=== PATIENT | female | born 1995 | race Caucasian/White ===

== ENCOUNTER 2021-06-07 08:00 | Inpatient (IN) | payer OTHER ==
[2021-07-02] MEDS ORDERED: Lidocaine 1% (PF) 30 ML VIAL SC PRN (05:33)
[2021-07-02] MEDS ORDERED: HYDROcodone/Acetaminophen 5/325 mg Tablet PO PRN ×4 (05:33→13:15)
[2021-07-02] MEDS ORDERED: Ondansetron PF 4 MG/2 ML Vial IVP PRN (05:33)
[2021-07-02] MEDS ORDERED: Ibuprofen 800 MG TAB PO PRN (05:33)
[2021-07-02] MEDS ORDERED: Butorphanol Tartrate 1 MG/ML VIAL SLOW IVP PRN (05:33)
[2021-07-02] MEDS ORDERED: Carboprost 250 MCG/ML AMP IM PRN (05:33)
[2021-07-02] MEDS ORDERED: hydrALAZINE 20 MG/ML VIAL SLOW IVP PRN ×2 (05:33→13:15)
[2021-07-02] MEDS ORDERED: Misoprostol 200 MCG TAB PR PRN (05:33)
[2021-07-02] MEDS ORDERED: Diphenoxylate HCl/Atropine Tablet PO PRN ×2 (05:33)
[2021-07-02] MEDS ORDERED: Methylergonovine 0.2 MG/ML VIAL IM PRN ×2 (05:33→13:15)
[2021-07-02] MEDS ORDERED: Promethazine HCl 25 MG/ML VIAL IM PRN (05:33)
[2021-07-02] MEDS ORDERED: NS w/ Oxytocin 30 units 500 ML IV SCH ×3 (05:45→13:15)
[2021-07-02 06:57] VITALS: BMI 34.9
[2021-07-02] MEDS: Lactated Ringer's 1,000 ML IV SCH ×2 (07:01→08:44)
[2021-07-02 07:58] LABS: Mean Corpuscular HGB CONC 27.9 g/dL (32.0-36.0); Mean Corpuscular Hemoglobin 20.6 pg (27.0-33.0); Mean Corpuscular Volume 73.9 fl (81.6-98.3); Platelet Count 121 10x3/uL (150-450); RBC Distribution Width 27.8 % (11.5-14.5); Red Blood Cell (RBC) Count 4.37 10x6/uL (3.90-5.03); White Blood Cell (WBC) Count 8.6 10x3/uL (3.5-10.5)
[2021-07-02] MEDS ORDERED: Fentanyl 2 mcg/Bup 0.1% Cadd 100 ML ONE (08:30)
[2021-07-02 08:36] LABS: Hep B Surf Ag Non-Reactive S/CO (NonReactive)
[2021-07-02 08:37] LABS: Syphilis Antibody Nonreactive (Nonreactive); Syphilis Antibody Index 0.02 S/CO (<1.00 Non-Reactive)
[2021-07-02 08:40] LABS: HBSAg Index 0.14 S/CO (0-0.99)
[2021-07-02] MEDS ORDERED: Methylergonovine 0.2 MG/ML VIAL ONE (10:34)
[2021-07-02] MEDS ORDERED: Carboprost 250 MCG/ML AMP ONE (10:34)
[2021-07-02] MEDS ORDERED: Misoprostol 200 MCG TAB ONE (10:34)
[2021-07-02] MEDS ORDERED: Boostrix 0.5 ML (Tdap) VIAL IM ONE (13:15)
[2021-07-02] MEDS ORDERED: Lanolin Ointment 7 GM TUBE TOP PRN (13:15)
[2021-07-02] MEDS ORDERED: Milk Of Magnesia 30 ML UDCUP PO PRN (13:15)
[2021-07-02] MEDS ORDERED: Bisacodyl 10 MG SUPP PR PRN (13:15)
[2021-07-02] MEDS ORDERED: Misoprostol 200 MCG TAB VAG PRN (13:15)
[2021-07-02] MEDS ORDERED: Benzocaine-Menthol 82.5 ML CAN TOP PRN (13:15)
[2021-07-02] MEDS: Ibuprofen 800 MG TAB PO SCH ×2 (17:12→22:00)
[2021-07-02] MEDS: Docusate Calcium (SURFAK) 240 MG CAP PO SCH (22:00)
[2021-07-03] MEDS: Ibuprofen 800 MG TAB PO SCH (06:37)
[2021-07-03] MEDS: Ferrous Sulfate 325 MG TAB PO SCH ×2 (07:17→08:28)
[2021-07-03 07:25] LABS: #Eosinphils 0.1 10x3/uL (0.0-0.5); #Monocytes 0.7 10x3/uL (0.0-1.1); #Neutrophils 7.8 10x3/uL (1.5-8.4); %Basophils 0.4 % (0.0-2.0); %Eosinophils 0.5 % (0.0-6.0); %Lymphocytes 21.4 % (18.0-47.0); %Monocytes 6.7 % (0.0-10.0); %Neutrophils 70.5 % (40.0-75.0); Hemoglobin 8.8 g/dL (12.0-15.5); Mean Corpuscular HGB CONC 28.2 g/dL (32.0-36.0); Mean Corpuscular Volume 74.5 fl (81.6-98.3); Platelet Count 109 10x3/uL (150-450); RBC Distribution Width 27.9 % (11.5-14.5); Red Blood Cell (RBC) Count 4.19 10x6/uL (3.90-5.03)
[2021-07-03 07:45] LABS: Anisocytosis MODERATE=16-30 cells (100X) (0-5/hpf); Hypochromia SLIGHT = 6-15 cells (100X) (0-5/hpf); Microcytosis SLIGHT = 6-15 cells (100X) (0-5/hpf); Ovalocytes SLIGHT = 2-5 cells (100X) (0-1/hpf); Platelet Morphology Comment Appears Decreased
[2021-07-03 08:05] VITALS: BP 107/65; TEMP 98
[2021-07-03] MEDS: Docusate Calcium (SURFAK) 240 MG CAP PO SCH (08:28)
[2021-07-03] MEDS ORDERED: Prenatal Vitamin 1 TAB PO SCH (09:00)
== END 2021-07-03 14:30 | disposition home or self-care (01) | DRG 807 ==
LOC: EDSTATUS 08:00 → CSHLD 07-02 06:05 → CSHPP 07-02 15:25
PROVIDERS: ADMIT Student in an Organized Health Care Education/Training Program; ATTEND Student in an Organized Health Care Education/Training Program
PROC: 10E0XZZ Delivery of Products of Conception, External Approach (ICD-10-PCS; principal; 2021-07-02)
PROC: 0U7C7ZZ Dilation of Cervix, Via Natural or Artificial Opening (ICD-10-PCS; 2021-07-02)
PROC: 3E0P7VZ Introduction of Hormone into Female Reproductive, Via Natural or Artificial Opening (ICD-10-PCS; 2021-07-02)
PROC: 10907ZC Drainage of Amniotic Fluid, Therapeutic from Products of Conception, Via Natural or Artificial Opening (ICD-10-PCS; 2021-07-02)
PROC: 3E033VJ Introduction of Other Hormone into Peripheral Vein, Percutaneous Approach (ICD-10-PCS; 2021-07-02)
DX: O48.0 Post-term pregnancy (principal); Z37.0 Single live birth; Z20.822 Contact with and (suspected) exposure to COVID-19; Z3A.40 40 weeks gestation of pregnancy; O99.02 Anemia complicating childbirth; D50.9 Iron deficiency anemia, unspecified
CPT/HCPCS: 36415; 51702; 85025; 85027; 86780; 86850; 86900; 86901; 87340; J2590; U0003; U0005

== ENCOUNTER 2021-06-18 07:55 | Outpatient (CLI) | payer OTHER ==
[2021-06-18 17:13] LABS: SARS-CoV-2 PCR by NAA Not Detected (NotDetected)
== END 2021-06-18 07:56 | disposition home or self-care (01) ==
LOC: CSHLAB 07:55
PROVIDERS: ATTEND Advanced Practice Midwife
DX: Z20.822 Contact with and (suspected) exposure to COVID-19 (principal)
CPT/HCPCS: U0003; U0005

== ENCOUNTER 2021-06-30 15:10 | Outpatient (CLI) | payer OTHER ==
[2021-07-01 07:54] LABS: SARS-CoV-2 PCR by NAA Not Detected (NotDetected)
== END 2021-06-30 15:11 | disposition home or self-care (01) ==
LOC: CSHLAB 15:10
PROVIDERS: ATTEND Advanced Practice Midwife
DX: Z20.822 Contact with and (suspected) exposure to COVID-19 (principal)
CPT/HCPCS: U0003; U0005